=== PATIENT | male | born 1990 | race Caucasian/White ===

== ENCOUNTER 2023-02-27 14:55 | Emergency (ER) | payer MEDICAID ==
[2023-02-27] MEDS ORDERED: HYDROmorphone 1 MG/ML Syringe IM ONE (15:54)
== END 2023-02-27 17:10 | disposition home or self-care (01) ==
LOC: JP.ED 14:55
DX: M54.50 Low back pain, unspecified (principal); G89.29 Other chronic pain; Z88.0 Allergy status to penicillin; Z72.0 Tobacco use
CPT/HCPCS: 96372; 99283; J1170

== ENCOUNTER 2023-02-28 17:57 | Emergency (ER) | payer MEDICAID ==
[2023-02-28] MEDS ORDERED: HYDROmorphone 1 MG/ML Syringe IM ONE (19:40)
== END 2023-02-28 20:43 | disposition home or self-care (01) ==
LOC: JP.ED 17:57
DX: M51.16 Intervertebral disc disorders with radiculopathy, lumbar region (principal); Z88.0 Allergy status to penicillin; Z86.16 Personal history of COVID-19
CPT/HCPCS: 96372; 99283; J1170

== ENCOUNTER 2023-04-13 23:15 | Emergency (ER) | payer MEDICAID ==
[2023-04-14] MEDS ORDERED: Sodium Chloride 0.9% 10 ML Syringe FLUSH PRN (00:53)
[2023-04-14] MEDS ORDERED: fentaNYL 100 MCG/2 ML SDV IVPUSH ONE (00:55)
[2023-04-14] MEDS ORDERED: Pantoprazole 40 MG Vial IVPUSH ONE (00:55)
[2023-04-14] MEDS ORDERED: droPERidol 5 MG/2 ML SDV IVPUSH ONE (00:56)
[2023-04-14 00:58] LABS: BASOPHILS ABSOLUTE AUTO 0.12 K/uL (0.00-0.10); BASOPHILS PERCENT AUTO 1.8 % (0.1-1.3); EOSINOPHILS ABSOLUTE AUTO 0.05 K/uL (0.00-0.40); EOSINOPHILS PERCENT AUTO 0.8 % (0.0-5.4); HEMOGLOBIN 15.4 g/dL (12.9-16.9); IMMATURE GRAN ABSOLUTE AUTO 0.07 K/uL (0.00-0.23); IMMATURE GRAN PERCENT AUTO 1.1 % (0.0-0.7); LYMPHOCYTES ABSOLUTE AUTO 2.31 K/uL (0.8-3.3); LYMPHOCYTES PERCENT AUTO 35.4 % (11.4-47.7); MEAN CORPUSCULAR HEMOGLOBIN 32.7 pg (31.6-35.5); MEAN CORPUSCULAR VOLUME 93.4 fL (81.4-99.0); MONOCYTES ABSOLUTE AUTO 0.56 K/uL (0.20-0.90); MONOCYTES PERCENT AUTO 8.6 % (3.3-12.6); NEUTROPHILS ABSOLUTE AUTO 3.41 K/uL (1.0-7.6); NEUTROPHILS PERCENT AUTO 52.3 % (40.0-78.1); PLATELET COUNT,PLT 337 K/uL (130-375); RED BLOOD CELL COUNT 4.71 M/uL (4.14-5.76); WHITE BLOOD CELL COUNT,WBC 6.5 K/uL (3.2-11.0)
[2023-04-14] MEDS ORDERED: Lactated Ringers 1,000 ML IV SCH (01:00)
[2023-04-14 01:09] LABS: A/G RATIO 0.9 (1.2-2.2); ALANINE AMINOTRANSFERASE,ALT 42 U/L (12-78); ALBUMIN 3.3 g/dL (3.4-5.0); ALKALINE PHOSPHATASE 82 U/L (46-116); ASPARTATE AMNIOTRANSFERASE,AST 43 U/L (15-37); BILIRUBIN TOTAL 0.4 mg/dL (0.2-1.0); BLOOD UREA NITROGEN,BUN 7 mg/dL (7-18); CALCIUM 8.3 mg/dL (8.5-10.1); CARBON DIOXIDE,CO2 23 mmol/L (21-32); CHLORIDE,CL 101 mmol/L (100-108); ESTIMATED GFR 104 mL/min (>60); GLUCOSE RANDOM 97 mg/dL (74-106); LIPASE 134 U/L (73-393); POTASSIUM,K 3.8 mmol/L (3.6-5.2); PROTEIN TOTAL,TP 6.9 g/dL (6.4-8.2); SODIUM,NA 138 mmol/L (140-148)
[2023-04-14 01:11] LABS: PROTHROMBIN TIME 10.6 sec (9.2-10.6)
[2023-04-14 01:14] LABS: ANION GAP 17.8 mmol/L (5.0-14.0)
[2023-04-14] MEDS ORDERED: Iopamidol 612 MG/ML 100 ML Bottle IV STA (01:21)
[2023-04-14] MEDS ORDERED: Sodium Chloride 0.9% 10 ML Syringe FLUSH STA (01:22)
[2023-04-14] MEDS ORDERED: Sodium Chloride 0.9% 50 ML IV STA (01:22)
== END 2023-04-14 04:09 | disposition home or self-care (01) ==
LOC: JP.ED 23:15
DX: K92.1 Melena (principal); F10.20 Alcohol dependence, uncomplicated; Z88.0 Allergy status to penicillin; Z86.16 Personal history of COVID-19; Y90.6 Blood alcohol level of 120-199 mg/100 ml
CPT/HCPCS: 36415; 74177; 80053; 80307; 83605; 83690; 85025; 85610; 96361; 96374; 96375; 99284; C9113; J1790; J3010; J3490; J7120; Q9967

== ENCOUNTER 2023-05-01 06:44 | Day surgery (SDC) | payer MEDICAID ==
[2023-05-01] MEDS ORDERED: fentaNYL 100 MCG/2 ML SDV ONE (07:27)
[2023-05-01] MEDS ORDERED: Midazolam 1 MG/ML 2 ML SDV ONE (07:27)
[2023-05-01] MEDS ORDERED: Propofol 200 MG/20 ML SDV ONE ×2 (07:27→07:56)
[2023-05-01] MEDS ORDERED: Sodium Chloride 0.9% 1,000 ML IV SCH (07:30)
== END 2023-05-01 09:17 | disposition home or self-care (01) ==
LOC: JP.SDS 06:44
PROVIDERS: ATTEND Surgery
DX: K92.2 Gastrointestinal hemorrhage, unspecified (principal); F32.A Depression, unspecified; R73.03 Prediabetes; K21.9 Gastro-esophageal reflux disease without esophagitis; Z88.0 Allergy status to penicillin; Z79.899 Other long term (current) drug therapy
CPT/HCPCS: 43239; J2250; J2704; J3010; J7030

== ENCOUNTER 2023-05-08 07:30 | Day surgery (SDC) | payer MEDICAID ==
[2023-05-08] MEDS ORDERED: Propofol 200 MG/20 ML SDV ONE ×2 (07:48→10:37)
[2023-05-08] MEDS ORDERED: Midazolam 1 MG/ML 2 ML SDV ONE (07:49)
[2023-05-08] MEDS ORDERED: fentaNYL 100 MCG/2 ML SDV ONE (07:49)
[2023-05-08] MEDS: Sodium Chloride 0.9% 1,000 ML IV SCH (08:16)
[2023-05-08] MEDS ORDERED: Ondansetron 4 MG/2 ML SDV ONE (10:28)
== END 2023-05-08 11:45 | disposition home or self-care (01) ==
LOC: JP.SDS 07:30
PROVIDERS: ATTEND Surgery
DX: K44.9 Diaphragmatic hernia without obstruction or gangrene (principal); K21.9 Gastro-esophageal reflux disease without esophagitis
CPT/HCPCS: 43239; 88305; J2250; J2405; J2704; J3010; J7030

== ENCOUNTER 2023-09-27 15:02 | Emergency (ER) | payer MEDICAID ==
[2023-09-27] MEDS ORDERED: Naloxone 0.4 MG/ML SDV IVPUSH PRN (15:36)
[2023-09-27] MEDS ORDERED: HYDROmorphone 0.5 MG/0.5 ML Syringe IVPUSH ONE (15:36)
[2023-09-27 15:49] LABS: BASOPHILS ABSOLUTE AUTO 0.05 K/uL (0.00-0.10); EOSINOPHILS ABSOLUTE AUTO 0.05 K/uL (0.00-0.40); HEMATOCRIT 37.9 % (38.4-49.7); HEMOGLOBIN 13.7 g/dL (12.9-16.9); IMMATURE GRAN ABSOLUTE AUTO 0.05 K/uL (0.00-0.23); LYMPHOCYTES ABSOLUTE AUTO 1.01 K/uL (0.8-3.3); LYMPHOCYTES PERCENT AUTO 19.9 % (11.4-47.7); MEAN CORPUSCULAR HEMOGLOBIN 34.9 pg (31.6-35.5); MEAN CORPUSCULAR HGB CONC 36.1 g/dL (31.6-35.5); MEAN CORPUSCULAR VOLUME 96.7 fL (81.4-99.0); MONOCYTES ABSOLUTE AUTO 0.35 K/uL (0.20-0.90); MONOCYTES PERCENT AUTO 6.9 % (3.3-12.6); NEUTROPHILS ABSOLUTE AUTO 3.56 K/uL (1.0-7.6); NEUTROPHILS PERCENT AUTO 70.2 % (40.0-78.1); PLATELET COUNT,PLT 124 K/uL (130-375); RED BLOOD CELL COUNT 3.92 M/uL (4.14-5.76); WHITE BLOOD CELL COUNT,WBC 5.1 K/uL (3.2-11.0)
[2023-09-27 16:09] LABS: ALANINE AMINOTRANSFERASE,ALT 78 U/L (12-78); ALBUMIN 3.2 g/dL (3.4-5.0); ALKALINE PHOSPHATASE 94 U/L (46-116); ASPARTATE AMNIOTRANSFERASE,AST 265 U/L (15-37); BILIRUBIN TOTAL 1.1 mg/dL (0.2-1.0); BLOOD UREA NITROGEN,BUN 4 mg/dL (7-18); CALCIUM 7.9 mg/dL (8.5-10.1); CARBON DIOXIDE,CO2 27 mmol/L (21-32); CHLORIDE,CL 98 mmol/L (100-108); EST CRCL DRUG DOSING (CG) 100.07 mL/min; ESTIMATED GFR 103 mL/min (>60); GLUCOSE RANDOM 102 mg/dL (74-106); PROTEIN TOTAL,TP 6.5 g/dL (6.4-8.2); SODIUM,NA 135 mmol/L (140-148)
[2023-09-27 16:11] LABS: C-REACTIVE PROTEIN < 0.50 mg/dL (0.0-0.3)
[2023-09-27 16:20] LABS: APPEARANCE,URINE SLIGHTLY CLOUDY (CLEAR); BILIRUBIN,URINE SMALL (NEGATIVE); GLUCOSE,URINE NEGATIVE (NEGATIVE); KETONES,URINE 15 mg/dL (NEGATIVE); LEUKOCYTE ESTERASE,URINE NEGATIVE (NEGATIVE); NITRITE,URINE NEGATIVE (NEGATIVE); OCCULT BLOOD,URINE NEGATIVE (NEGATIVE); PH,URINE 8.5 (5.0-8.0); PROTEIN,URINE 30 mg/dL (NEGATIVE); UROBILINOGEN,URINE 0.2 EU/dL (0.2-1.0)
[2023-09-27 16:28] LABS: AMORPHOUS SEDIMENT,URINE NOT SEEN; BACTERIA,URINE FEW; COLOR,URINE OTHER (YELLOW); EPITHELIAL CELLS,URINE RARE; MUCUS,URINE MANY; RBC,URINE 0-5 (0-5); WBC,URINE 0-5 (0-5)
[2023-09-27] MEDS ORDERED: Potassium Chloride 20 MEQ Tab.ER PO ONE (16:31)
== END 2023-09-27 18:42 | disposition home or self-care (01) ==
LOC: JP.ED 15:02
DX: N41.9 Inflammatory disease of prostate, unspecified (principal); F17.210 Nicotine dependence, cigarettes, uncomplicated; I10 Essential (primary) hypertension; Z86.73 Personal history of transient ischemic attack (TIA), and cerebral infarction without residual deficits; Z86.16 Personal history of COVID-19; Z88.0 Allergy status to penicillin; Z88.1 Allergy status to other antibiotic agents; Z91.048 Other nonmedicinal substance allergy status
CPT/HCPCS: 36415; 74176; 76870; 80053; 81001; 83605; 85025; 86140; 93976; 96374; 99284; A9270; J1170